=== PATIENT | male | born 1995 | race Caucasian/White ===

== ENCOUNTER 2020-11-07 09:36 | Emergency (ER) | payer SELFPAY ==
[~2020-11-07] VITALS: Ht 167.6 cm; Wt 102.1 kg
[2020-11-07] MEDS ORDERED: DiphenhydrAMINE HCL 50 MG/ML VIAL ONE (09:56)
[2020-11-07] MEDS ORDERED: SOLU-MEDROL 125MG VIAL ONE (09:56)
[2020-11-07] MEDS ORDERED: LORATADINE 10 MG TABLET ONE (09:56)
[2020-11-07] MEDS ORDERED: LORATADINE 10 MG TABLET PO SCH (10:00)
[2020-11-07] MEDS ORDERED: DiphenhydrAMINE HCL 50 MG/ML VIAL IV SCH (10:00)
[2020-11-07] MEDS ORDERED: SOLU-MEDROL 125MG VIAL IVP SCH (10:00)
[2020-11-07 10:05] VITALS: BP 121/67
[2020-11-07] MEDS ORDERED: HYD25 PO (10:48)
[2020-11-07] MEDS ORDERED: LORA10TA7 PO (10:48)
[2020-11-07 10:52] VITALS: BP 134/82
== END 2020-11-07 11:13 | disposition home or self-care (01) ==
LOC: EDH 09:36
DX: L50.9 Urticaria, unspecified (principal); Z79.52 Long term (current) use of systemic steroids
CPT/HCPCS: 36415; 82948; 96374; 96375; 99284; J1200; J2930